=== PATIENT | male | born 1945 | race Caucasian/White ===

== ENCOUNTER 2020-12-22 11:39 | Inpatient (IN) | payer MEDICARE, BC ==
[~2020-12-22] VITALS: Ht 172.7 cm; Wt 90.7 kg
[2020-12-22 12:26] LABS: HEMATOCRIT 41.8 % (36.7-47.1); MEAN CORPUSCULAR HEMOGLOBIN 31.9 uug (23.8-33.4); MEAN CORPUSCULAR VOLUME 95.3 fL (73.0-96.2); PLATELET COUNT (AUTO) 202 K/uL (152-348)
[2020-12-22] MEDS ORDERED: EZET10TA15 PO (12:35)
[2020-12-22] MEDS ORDERED: IBUP-2413 PO (12:35)
[2020-12-22] MEDS ORDERED: ASCO500P18 PO (12:35)
[2020-12-22] MEDS ORDERED: LOSA25TA27 PO (12:35)
[2020-12-22] MEDS ORDERED: MECL-159 PO (12:35)
[2020-12-22] MEDS ORDERED: NIFE30TA2 PO (12:35)
[2020-12-22] MEDS ORDERED: ATOR40TA PO (12:35)
[2020-12-22] MEDS ORDERED: GLUC1CAP29 PO (12:35)
[2020-12-22] MEDS ORDERED: CYAN-51 PO (12:35)
[2020-12-22] MEDS ORDERED: VITAMIN D3 (12:35)
[2020-12-22] MEDS ORDERED: ZINC50TA69 PO (12:35)
[2020-12-22] MEDS ORDERED: [UNRECOGNIZED DRUG - OTHER] PO (12:35)
[2020-12-22] MEDS ORDERED: BUPR-319 PO (12:35)
[2020-12-22] MEDS ORDERED: ASPI81TA31 PO (12:35)
[2020-12-22] MEDS ORDERED: NYQUIL PO (12:35)
[2020-12-22] MEDS ORDERED: SERT50TA PO (12:36)
[2020-12-22] MEDS ORDERED: TERA2CAP4 PO (12:36)
[2020-12-22] MEDS ORDERED: LEVE500T20 PO (12:36)
[2020-12-22 12:37] LABS: CARBON DIOXIDE 19 mmol/L (21-32); CHLORIDE 102 mmol/L (98-107); CREATININE 2.5 mg/dL (0.6-1.3); GLUCOSE 91 mg/dL (74-106); POTASSIUM 4.7 mmol/L (3.5-5.1); UREA NITROGEN, BLOOD 38 mg/dL (7-18)
[2020-12-22 12:42] LABS: ALANINE AMINOTRANSFERASE 23 U/L (16-63); ALKALINE PHOSPHATASE 61 U/L (50-136); ASPARTATE AMINOTRANSFERASE 20 U/L (15-37); BILIRUBIN,DIRECT 0.1 mg/dL (0.0-0.2); BILIRUBIN,TOTAL 0.3 mg/dL (0.2-1.0); TOTAL PROTEIN, SERUM 7.4 g/dL (6.4-8.2)
[2020-12-22] MEDS ORDERED: IV NS 1000 ML 1,000 ML IV ONE (13:00)
[2020-12-22] MEDS ORDERED: IV NORMAL SALINE 1000 ML BAG IV ONE (13:00)
[2020-12-22 13:16] LABS: MAGNESIUM 2.4 mg/dL (1.8-2.4); PHOSPHOROUS 5.1 mg/dL (2.5-4.9)
[2020-12-22 13:29] LABS: ABG BASE EXCESS -10.1 mmol/L; ABG HCO3 14.2 mmol/L; ABG PCO2 27.9 mmHg (35.0-45.0); ABG PH 7.326 (7.350-7.450); ABG PO2 80.8 mmHg (75.0-100.0); ABG SITE LEFT BRACHIAL; ABG TOTAL HEMOGLOBIN 14.4 G/dL (13.5-18.0); COHb 1.4 % (0.5-1.5); MetHb 0.2 % (0.0-1.5); O2Hb 93.7 % (94.0-97.0); VENT MODE ROOM AIR
[2020-12-22] MEDS ORDERED: SODIUM BICARBONATE 8.4% 50 MEQ/50 ML VIAL IV ONE (13:45)
[2020-12-22 14:16] LABS: *BILIRUBIN,URIN NEGATIVE (NEGATIVE); *CLARITY,URINE CLEAR (CLEAR); *COLOR,URINE YELLOW (YELLOW); *KETONES,URINE NEGATIVE (NEGATIVE); *UROBILINOGEN,URINE 0.2 E.U./dl (NORMAL); LEUKOCYTE ESTERASE ,URINE NEGATIVE (NEGATIVE); NITRITE, URINE NEGATIVE (NEGATIVE); UGLUCOSE NEGATIVE (NEGATIVE)
[2020-12-22 14:17] LABS: *BLOOD, URINE TRACE (NEGATIVE)
[2020-12-22 14:23] LABS: BACTERIA,URINE FEW /HPF (NONE SEEN); MUCUS,URINE FEW /LPF (0-FEW); RBC,URINE 0-3 /HPF (0-3); SQUAMOUS EPITHELIAL CELL,UR FEW /HPF (NONE SEEN); URINE AMORPHOUS URATE FEW /HPF
[2020-12-22] MEDS ORDERED: SODIUM BICARBONATE 8.4% 50 MEQ/50 ML DISP.SYRIN IV ONE (14:23)
[2020-12-22] MEDS ORDERED: CEFTRIAXONE 2 G in IV DEXTROSE 5% 100 ML IV ONE (15:00)
[2020-12-22] MEDS ORDERED: MAGNESIUM HYDROXIDE 30 ML LIQUID UDC PO PRN (16:15)
[2020-12-22] MEDS ORDERED: ACETAMINOPHEN 325 MG TABLET PO PRN (16:15)
[2020-12-22] MEDS ORDERED: Z GUARD REMEDY PASTE 57 GM TUBE TOP PRN (16:15)
[2020-12-22] MEDS ORDERED: ONDANSETRON 4 MG/2 ML VIAL IV PRN (16:15)
--- NOTE | 2020-12-22 16:18 | NUR ---
Patient is not medically cleared for [facility] admission per Dr Reyes. Patient needs medical-surgical bed & nurse with 1:[address] Reyes. Patient was updated.
[2020-12-22] MEDS ORDERED: MECLIZINE HCL 25 MG TABLET PO PRN (16:30)
--- NOTE | 2020-12-22 18:01 | NUR ---
Patient voided 4x, with bladder scan done by RADHA Gramajo.
--- NOTE | 2020-12-22 18:45 | NUR ---
received from ER per joao awake alert and oriented, sitter with pt, on 5150 hold til 12/21 0431, with saline lock on right forearm, dinner tray served- will endorse to next shift
--- NOTE | 2020-12-22 20:00 | NUR ---
RECEIVED PATIENT AWAKE IN BED. A/O X4. SITTER AT BEDSIDE FOR SAFETY. VSS. WILL CONTINUE TO MONITOR AND CLOSELY ASSESS.
[2020-12-22 20:02] VITALS: BP 151/85
[2020-12-22] MEDS: levETIRAcetam 500 MG TABLET PO SCH (20:11)
[2020-12-22] MEDS: TERAZOSIN 1 MG CAPSULE PO SCH (20:11)
[2020-12-22] MEDS: NIFEdipine XL 30 MG TABSR PO SCH (20:11)
[2020-12-22] MEDS: ATORVASTATIN 40 MG TABLET PO SCH (20:11)
[2020-12-22] MEDS: IV NS 1000 ML 1,000 ML IV PRN (21:09)
[2020-12-22] MEDS ORDERED: MELATONIN 3 MG TABLET PO ONE ×2 (21:45→22:45)
[2020-12-23 00:33] VITALS: BP 136/81
[2020-12-23 04:35] VITALS: BP 147/88
[2020-12-23] MEDS: IV NS 1000 ML 1,000 ML IV PRN ×2 (06:27→16:43)
[2020-12-23 06:37] LABS: HEMATOCRIT 36.7 % (36.7-47.1); MEAN CORPUSCULAR HEMOGLOBIN 31.8 uug (23.8-33.4); MEAN CORPUSCULAR VOLUME 95.4 fL (73.0-96.2); PLATELET COUNT (AUTO) 178 K/uL (152-348)
[2020-12-23 07:08] LABS: CARBON DIOXIDE 23 mmol/L (21-32); CHLORIDE 109 mmol/L (98-107); CHOLESTEROL 87 mg/dL (<200); CREATININE 1.4 mg/dL (0.6-1.3); GLUCOSE 87 mg/dL (74-106); HDL CHOLESTEROL 35 mg/dL (40-60); MAGNESIUM 2.1 mg/dL (1.8-2.4); PHOSPHOROUS 4.1 mg/dL (2.5-4.9); POTASSIUM 4.5 mmol/L (3.5-5.1); TRIGLYCERIDES 64 MG/DL (30-150); UREA NITROGEN, BLOOD 30 mg/dL (7-18)
--- NOTE | 2020-12-23 08:00 | NUR ---
awake alert and oriented, denies of pain, no distress noted, still looks depressed, 1:1 sitter in the room, safety measures maintained
[2020-12-23] MEDS: ASCORBIC ACID 500 MG TABLET PO SCH (08:31)
[2020-12-23] MEDS: CYANOCOBALAMIN 1,000 MCG TABLET PO SCH (08:31)
[2020-12-23] MEDS: EZETIMIBE 10 MG TABLET PO SCH (08:32)
[2020-12-23] MEDS: ZINC SULFATE 220 MG CAPSULE PO SCH (08:34)
[2020-12-23] MEDS ORDERED: GLUC SU PO SCH (09:00)
[2020-12-23] MEDS ORDERED: [UNRECOGNIZED DRUG - OTHER] PO SCH (09:00)
[2020-12-23] MEDS ORDERED: buPROPion XL 150 MG TAB.SR.24H PO SCH (09:00)
[2020-12-23] MEDS ORDERED: SERTRALINE HCL 50 MG TABLET PO SCH (09:00)
[2020-12-23] MEDS ORDERED: CHONDROITIN SULFATE A PO SCH (09:00)
[2020-12-23 12:00] VITALS: BP 142/84
--- NOTE | 2020-12-23 12:00 | NUR ---
Dr Best here and saw pt- see notes
[2020-12-23] MEDS ORDERED: LORAZEPAM 1 MG TABLET PO PRN (12:30)
--- NOTE | 2020-12-23 13:00 | NUR ---
pt on 14 day hold
--- NOTE | 2020-12-23 14:00 | NUR ---
a mom fo a friend will be here to pick her up, family friend called and will be here in half hour, discharged instructions given, verbalized understanding, all belongings ready, sitting on chair without any dyspnea, tele remains SR 80's, call right on hand Addendum: 12/23/20 at 1533 by TANIKA WEBER RN wrong charting
--- NOTE | 2020-12-23 14:55 | NUR ---
transportation here, escorted to car per w/c in stable condition, all belongings with her Addendum: 12/23/20 at 1533 by TANIKA WEBER RN wrong charting
--- NOTE | 2020-12-23 15:00 | NUR ---
ambulated in the hallway with assist with sitter- tolerated well
[2020-12-23 16:08] VITALS: BP 147/92
--- NOTE | 2020-12-23 18:11 | NUR ---
no suicidal ideation noted at this time, no alcohol withdrawal noted, up to bathroom as needed with sitter's assistance, eating well and compliant with care and meds, all needs attended and met, safety measures maintained
--- NOTE | 2020-12-23 19:00 | NUR ---
pt is in bed awake sitter is at bed side no ss of depression noted vs are stable we will continue to monitors
[2020-12-23] MEDS: ATORVASTATIN 40 MG TABLET PO SCH (20:11)
[2020-12-23] MEDS: levETIRAcetam 500 MG TABLET PO SCH (20:11)
[2020-12-23] MEDS: NIFEdipine XL 30 MG TABSR PO SCH (20:11)
[2020-12-23] MEDS: TERAZOSIN 1 MG CAPSULE PO SCH (20:12)
[2020-12-23 20:37] VITALS: BP 150/80
[2020-12-23] MEDS ORDERED: MELATONIN 3 MG TABLET PO ONE (21:00)
[2020-12-24] MEDS: IV NS 1000 ML 1,000 ML IV PRN (02:06)
[2020-12-24 05:06] VITALS: BP 159/92
[2020-12-24 06:39] LABS: HEMATOCRIT 35.9 % (36.7-47.1); MEAN CORPUSCULAR HEMOGLOBIN 31.9 uug (23.8-33.4); MEAN CORPUSCULAR VOLUME 94.3 fL (73.0-96.2); PLATELET COUNT (AUTO) 174 K/uL (152-348)
[2020-12-24 07:05] LABS: CREATININE 0.9 mg/dL (0.6-1.3)
[2020-12-24] MEDS: SERTRALINE HCL 50 MG TABLET PO SCH ×2 (08:31→16:22)
[2020-12-24] MEDS: ASCORBIC ACID 500 MG TABLET PO SCH (08:31)
[2020-12-24] MEDS: CYANOCOBALAMIN 1,000 MCG TABLET PO SCH (08:31)
[2020-12-24] MEDS: EZETIMIBE 10 MG TABLET PO SCH (08:31)
[2020-12-24] MEDS: ZINC SULFATE 220 MG CAPSULE PO SCH (08:31)
[2020-12-24] MEDS ORDERED: buPROPion XL 150 MG TAB.SR.24H PO SCH (09:00)
[2020-12-24 13:00] VITALS: BP 154/91
[2020-12-24 16:05] VITALS: BP 159/89
--- NOTE | 2020-12-24 19:00 | NUR ---
RECD PT IN BED, NO ACUTE DISTRESS NOTED,ALERT AND ORIENTED X4,NO COMPLAINTS OF VERTIGO NOTED.
[2020-12-24 20:40] VITALS: BP 154/90
[2020-12-24] MEDS: levETIRAcetam 500 MG TABLET PO SCH (20:53)
[2020-12-24] MEDS: ATORVASTATIN 40 MG TABLET PO SCH (20:53)
[2020-12-24] MEDS: TERAZOSIN 1 MG CAPSULE PO SCH (20:53)
[2020-12-24] MEDS: NIFEdipine XL 30 MG TABSR PO SCH (20:54)
--- NOTE | 2020-12-24 20:55 | NUR ---
HEPLOCK ON RIGHT FOREARM GOT INFILTRATED, CLEANED AND KEPT DRY,PT APPEARED ANXIOUS AND RESTLESS, ATIVAN 1 MG PO GIVEN .SLEPT AT SHORT INTERVALS.
[2020-12-25 04:36] VITALS: BP 130/87
--- NOTE | 2020-12-25 04:57 | NUR ---
NO SUICIDAL IDEATION NOTED, 1;1 SITTER AT BEDSIDE.
[2020-12-25 06:34] LABS: HEMATOCRIT 37.3 % (36.7-47.1); MEAN CORPUSCULAR VOLUME 94.7 fL (73.0-96.2); PLATELET COUNT (AUTO) 194 K/uL (152-348)
[2020-12-25 06:40] LABS: CREATININE 0.9 mg/dL (0.6-1.3); MAGNESIUM 1.7 mg/dL (1.8-2.4); PHOSPHOROUS 4.7 mg/dL (2.5-4.9); POTASSIUM 4.3 mmol/L (3.5-5.1)
--- NOTE | 2020-12-25 07:49 | NUR ---
Awake, alert, oriented x 4. Denies pain. Denies suicidal ideation. 1:1 sitter at bedside.
[2020-12-25] MEDS: SERTRALINE HCL 50 MG TABLET PO SCH (08:57)
[2020-12-25] MEDS: EZETIMIBE 10 MG TABLET PO SCH (08:57)
[2020-12-25] MEDS: ASCORBIC ACID 500 MG TABLET PO SCH (08:57)
[2020-12-25] MEDS: CYANOCOBALAMIN 1,000 MCG TABLET PO SCH (08:57)
[2020-12-25] MEDS: ZINC SULFATE 220 MG CAPSULE PO SCH (08:57)
[2020-12-25] MEDS ORDERED: LISINOPRIL 5 MG TABLET PO SCH (09:00)
[2020-12-25] MEDS ORDERED: MAGNESIUM SULFATE/D5W 100 ML IV SCH (10:15)
[2020-12-25] MEDS ORDERED: MAGNESIUM OXIDE 400 MG TABLET PO ONE (11:00)
[2020-12-25 11:07] VITALS: BP 137/87
[2020-12-25] MEDS ORDERED: SERTRALINE HCL 100 MG TABLET PO SCH (13:00)
[2020-12-25] MEDS ORDERED: SERT100T12 PO (14:42)
[2020-12-25] MEDS ORDERED: SERT50TA12 PO (14:42)
[2020-12-25] MEDS ORDERED: LISI-782 PO (14:42)
[2020-12-25] MEDS ORDERED: ACID1TAB4 GT (14:42)
[2020-12-25] MEDS ORDERED: ACIDOPHILUS/BULGARICUS CHEW TAB GT SCH (14:45)
--- NOTE | 2020-12-25 14:45 | NUR ---
With loose BM. Jolynn SHELL FREEZING MACHINE OPERATOR informed with order for Floranex, given
[2020-12-25] MEDS ORDERED: ACIDOPHILUS/BULGARICUS CHEW TAB PO SCH (15:00)
--- NOTE | 2020-12-25 15:52 | NUR ---
With discharge order to [facility]. Report given to August. Endorsed for further care
[2020-12-26] MEDS ORDERED: SERTRALINE HCL 50 MG TABLET PO SCH (09:00)
== END 2020-12-25 16:00 | DRG 917 ==
LOC: ER 11:39 → MEDSURG3 17:59 → TELE3 19:19 → MEDSURG3 12-24 10:17
PROVIDERS: ADMIT Family Medicine; ATTEND Nurse Practitioner Acute Care
DX: T39.392A Poisoning by other nonsteroidal anti-inflammatory drugs [NSAID], intentional self-harm, initial encounter (principal); N17.0 Acute kidney failure with tubular necrosis; F32.2 Major depressive disorder, single episode, severe without psychotic features; N39.0 Urinary tract infection, site not specified; E87.2 Acidosis; Y92.009 Unspecified place in unspecified non-institutional (private) residence as the place of occurrence of the external cause; E86.9 Volume depletion, unspecified; G40.909 Epilepsy, unspecified, not intractable, without status epilepticus; F60.9 Personality disorder, unspecified; F41.9 Anxiety disorder, unspecified; Z91.5 Personal history of self-harm; Z79.82 Long term (current) use of aspirin; Z86.73 Personal history of transient ischemic attack (TIA), and cerebral infarction without residual deficits; Z87.891 Personal history of nicotine dependence; E78.5 Hyperlipidemia, unspecified; N40.1 Benign prostatic hyperplasia with lower urinary tract symptoms; N18.9 Chronic kidney disease, unspecified; I12.9 Hypertensive chronic kidney disease with stage 1 through stage 4 chronic kidney disease, or unspecified chronic kidney disease; B96.89 Other specified bacterial agents as the cause of diseases classified elsewhere; Z72.89 Other problems related to lifestyle
CPT/HCPCS: 36415; 36600; 70030-TC; 71045; 83605; 83735; 83930; 83935; 84100; 85025; 87086; 93005; A4663; G0378; J0696; J3490; J7030; J7060

== ENCOUNTER 2020-12-25 16:24 | Inpatient (IN) | payer MEDICARE, BC ==
[~2020-12-25] VITALS: Ht 167.6 cm; Wt 83.5 kg
[~2020-12-25 16:24] MED LIST: ACID1TAB4 GT; ASCO500P18 PO; ASPI81TA31 PO; ATOR40TA PO; BUPR-319 PO; CYAN-51 PO; EZET10TA15 PO; GLUC1CAP29 PO; IBUP-2413 PO; LEVE500T20 PO; LISI-782 PO; LOSA25TA27 PO; MECL-159 PO; NIFE30TA2 PO; NYQUIL PO; SERT100T12 PO; SERT50TA PO; SERT50TA12 PO; TERA2CAP4 PO; VITAMIN D3; ZINC50TA69 PO; [UNRECOGNIZED DRUG - OTHER] PO
[2020-12-25] MEDS ORDERED: LORAZEPAM 0.5 MG TABLET PO PRN (17:00)
[2020-12-25] MEDS ORDERED: BLOOD SUGAR DIAGNOSTIC 1 EACH STRIP VI ONE (17:00)
[2020-12-25] MEDS ORDERED: MAG HYDROX/AL HYDROX/SIMETH 30 ML LIQUID UDC PO PRN (17:00)
[2020-12-25] MEDS ORDERED: ACETAMINOPHEN 325 MG TABLET PO PRN (17:00)
[2020-12-25] MEDS ORDERED: TEMAZEPAM 7.5 MG CAPSULE PO PRN (17:00)
[2020-12-25] MEDS ORDERED: MAGNESIUM HYDROXIDE 30 ML LIQUID UDC PO PRN (17:00)
--- NOTE | 2020-12-25 17:08 | NUR ---
GPS: Nursing Notes: Admission Notes: Patient is admitted to [facility] on 5250 DTS due to patient with severe depression, states post Ibuprofen overdose, danger to self, upon face to face assessment, patient is A/Ox4, cooperative with staff, depressed mood and anxious affect at times, denies SI, stated "It was a stupid thing to do..", low energy level, oriented to the unit, admitting package given to patient, Dr. Best and Jolynn Blas, TREE SURGEON HELPER notified of admission, continue to monitor for safety, continue with treatment plan.
[2020-12-25 18:19] VITALS: BP 134/90
[2020-12-25] MEDS ORDERED: MECLIZINE HCL 25 MG TABLET PO PRN (19:30)
[2020-12-25 20:36] VITALS: BP 149/90
[2020-12-25] MEDS ORDERED: IBUPROFEN 200 MG TABLET PO PRN (21:00)
[2020-12-25] MEDS: levETIRAcetam 500 MG TABLET PO SCH (21:03)
[2020-12-25] MEDS: NIFEdipine XL 30 MG TABSR PO SCH (21:03)
[2020-12-25] MEDS ORDERED: ACIDOPHILUS/BULGARICUS CHEW TAB GT SCH (22:00)
[2020-12-26] MEDS: ACIDOPHILUS/BULGARICUS CHEW TAB PO SCH ×3 (06:44→22:28)
[2020-12-26 07:30] VITALS: BP 129/88
[2020-12-26] MEDS ORDERED: CHONDROITIN SULFATE A PO SCH (09:00)
[2020-12-26] MEDS ORDERED: Medication Not On Formulary EA (Zinc 50 MG) PO SCH (09:00)
[2020-12-26] MEDS ORDERED: [UNRECOGNIZED DRUG - OTHER] PO SCH (09:00)
[2020-12-26] MEDS ORDERED: GLUC SU PO SCH (09:00)
[2020-12-26] MEDS ORDERED: Medication Not On Formulary EA (Ascorbic Acid (Vitamin C) 1,000 MG) PO SCH (09:00)
--- NOTE | 2020-12-26 09:10 | NUR ---
KIMMIE Initial Discharge Plan: Patient resides at home [address] [place] [address] with his Pam Zelaya ([phone]). Patient would like a SNF upon discharge. KIMMIE will continue to work with patient, family, and MD to ensure a safe and proper discharge plan.
--- NOTE | 2020-12-26 09:13 | NUR ---
Brief Substance Abuse Intervention: Patient was provided with a brief substance abuse intervention for medication overdose and alcohol use and referred to the following substance abuse programs: [facility] ([phone]); [facility] [address] [place] [address] ([phone]); [address] [address] ([phone]); [facility] ([phone]); [facility] ([phone]); [facility] ([phone]); [facility] ([phone]).
--- NOTE | 2020-12-26 09:13 | NUR ---
KIMMIE Family Contact: SW contacted patient's Pam Zelaya ([phone]) to discuss treatment and discharge plan. Left a message.
--- NOTE | 2020-12-26 09:13 | NUR ---
Firearms Report: Test And Balance Engineer completed and submitted a [employer] firearms report for 5150 danger to self certifications. A copy of report has been placed in patient chart.
--- NOTE | 2020-12-26 09:22 | NUR ---
KIMMIE Family Contact: SW contacted patient's Pam Zelaya ([phone]) and discussed treatment and discharge plan.
[2020-12-26] MEDS: EZETIMIBE 10 MG TABLET PO SCH (10:27)
[2020-12-26] MEDS: CYANOCOBALAMIN 1,000 MCG TABLET PO SCH (10:27)
[2020-12-26] MEDS: LOSARTAN POTASSIUM 25 MG TABLET PO SCH (10:27)
[2020-12-26] MEDS: ASCORBIC ACID 500 MG TABLET PO SCH (10:27)
[2020-12-26] MEDS: ZINC SULFATE 220 MG CAPSULE PO SCH (10:27)
[2020-12-26] MEDS: LISINOPRIL 5 MG TABLET PO SCH (10:28)
[2020-12-26] MEDS: SERTRALINE HCL 50 MG TABLET PO SCH (10:30)
[2020-12-26] MEDS: SERTRALINE HCL 100 MG TABLET PO SCH (13:33)
[2020-12-26 16:40] VITALS: BP 134/88
[2020-12-26] MEDS: HYDROCORTISONE 0.5% CREAM 28.35 GM TUBE TOP SCH ×2 (18:04→22:29)
[2020-12-26] MEDS: ATORVASTATIN 40 MG TABLET PO SCH (18:04)
[2020-12-26 20:08] VITALS: BP 129/81
[2020-12-26] MEDS: levETIRAcetam 500 MG TABLET PO SCH (22:28)
[2020-12-26] MEDS: NIFEdipine XL 30 MG TABSR PO SCH (22:30)
[2020-12-27 07:30] VITALS: BP 136/85
[2020-12-27] MEDS: ACIDOPHILUS/BULGARICUS CHEW TAB PO SCH ×3 (08:56→22:01)
[2020-12-27] MEDS: ZINC SULFATE 220 MG CAPSULE PO SCH (08:56)
[2020-12-27] MEDS: SERTRALINE HCL 50 MG TABLET PO SCH (08:56)
[2020-12-27] MEDS: EZETIMIBE 10 MG TABLET PO SCH (08:56)
[2020-12-27] MEDS: CYANOCOBALAMIN 1,000 MCG TABLET PO SCH (08:56)
[2020-12-27] MEDS: ASCORBIC ACID 500 MG TABLET PO SCH (08:57)
[2020-12-27] MEDS: LOSARTAN POTASSIUM 25 MG TABLET PO SCH (08:57)
[2020-12-27] MEDS: LISINOPRIL 5 MG TABLET PO SCH (08:57)
[2020-12-27] MEDS: HYDROCORTISONE 0.5% CREAM 28.35 GM TUBE TOP SCH ×2 (09:05→20:37)
--- NOTE | 2020-12-27 11:15 | NUR ---
KIMMIE SNF Referral: SW faxed patient's referral packet to the following SNFs for review and placement: [facility] attention to [facility] ( ) [facility] attention to [facility] ( ) [facility] attention to [facility] ( )
[2020-12-27] MEDS: SERTRALINE HCL 100 MG TABLET PO SCH (12:53)
--- NOTE | 2020-12-27 13:20 | NUR ---
KIMMIE PC Hearing: Patient had 5250 probable cause hearing today and it was upheld for danger to himself.
[2020-12-27 16:00] VITALS: BP 102/73
[2020-12-27] MEDS: ATORVASTATIN 40 MG TABLET PO SCH (17:05)
[2020-12-27] MEDS: TERAZOSIN 1 MG CAPSULE PO SCH (17:06)
[2020-12-27 20:00] VITALS: BP 111/59
[2020-12-27] MEDS: levETIRAcetam 500 MG TABLET PO SCH (20:36)
[2020-12-27] MEDS: NIFEdipine XL 30 MG TABSR PO SCH (20:37)
[2020-12-28] MEDS: ACIDOPHILUS/BULGARICUS CHEW TAB PO SCH ×3 (06:19→21:03)
--- NOTE | 2020-12-28 06:46 | NUR ---
GPS: Pt. slept 7.30 last night. Less depressed when asked. Denies SI. Re-assured prn. Will continue to monitor.
[2020-12-28 07:30] VITALS: BP 114/67
[2020-12-28] MEDS: SERTRALINE HCL 50 MG TABLET PO SCH (09:13)
[2020-12-28] MEDS: ASCORBIC ACID 500 MG TABLET PO SCH (09:13)
[2020-12-28] MEDS: EZETIMIBE 10 MG TABLET PO SCH (09:13)
[2020-12-28] MEDS: ZINC SULFATE 220 MG CAPSULE PO SCH (09:13)
[2020-12-28] MEDS: LOSARTAN POTASSIUM 25 MG TABLET PO SCH (09:13)
[2020-12-28] MEDS: CYANOCOBALAMIN 1,000 MCG TABLET PO SCH (09:14)
[2020-12-28] MEDS: HYDROCORTISONE 0.5% CREAM 28.35 GM TUBE TOP SCH ×2 (09:15→20:09)
[2020-12-28] MEDS: LISINOPRIL 5 MG TABLET PO SCH (09:15)
--- NOTE | 2020-12-28 09:43 | NUR ---
KIMMIE Family Contact: SW contacted patient's Mara Zelaya ([phone]) and discussed treatment and discharge plan. SW informed of patient being accepted to [facility] and she is agreeable.
--- NOTE | 2020-12-28 09:43 | NUR ---
SW SNF Referral: Patient is accepted at [facility] for placement.
[2020-12-28] MEDS: SERTRALINE HCL 100 MG TABLET PO SCH (12:50)
[2020-12-28 16:52] VITALS: BP 113/72
[2020-12-28] MEDS: TERAZOSIN 1 MG CAPSULE PO SCH (17:31)
[2020-12-28] MEDS: ATORVASTATIN 40 MG TABLET PO SCH (17:31)
[2020-12-28] MEDS: levETIRAcetam 500 MG TABLET PO SCH (20:08)
[2020-12-28] MEDS: NIFEdipine XL 30 MG TABSR PO SCH (20:08)
[2020-12-28 20:23] VITALS: BP 116/63
[2020-12-29] MEDS: ACIDOPHILUS/BULGARICUS CHEW TAB PO SCH ×3 (05:58→21:58)
--- NOTE | 2020-12-29 06:29 | NUR ---
GPS: Pt.slept 7.15 last night. Safe environment provided. Denies wanting to harm self. Encouraged to attend groups during the day. Will continue to monitor.
[2020-12-29 07:30] VITALS: BP 139/73
[2020-12-29] MEDS: EZETIMIBE 10 MG TABLET PO SCH (08:35)
[2020-12-29] MEDS: ZINC SULFATE 220 MG CAPSULE PO SCH (08:35)
[2020-12-29] MEDS: SERTRALINE HCL 50 MG TABLET PO SCH (08:35)
[2020-12-29] MEDS: ASCORBIC ACID 500 MG TABLET PO SCH (08:35)
[2020-12-29] MEDS: CYANOCOBALAMIN 1,000 MCG TABLET PO SCH (08:35)
[2020-12-29] MEDS: HYDROCORTISONE 0.5% CREAM 28.35 GM TUBE TOP SCH ×2 (08:36→20:08)
[2020-12-29] MEDS: LISINOPRIL 5 MG TABLET PO SCH (08:36)
[2020-12-29] MEDS: LOSARTAN POTASSIUM 25 MG TABLET PO SCH (08:36)
[2020-12-29] MEDS: SERTRALINE HCL 100 MG TABLET PO SCH (12:32)
--- NOTE | 2020-12-29 12:53 | NUR ---
Patient is alert and oriented, pleasant and cooperative upon assessment. Denies of any pain. All due meds given per MD order. All needs met in a timely manner. No s/s of distress noted.
[2020-12-29 15:02] VITALS: BP 122/78
[2020-12-29] MEDS: ATORVASTATIN 40 MG TABLET PO SCH (17:11)
[2020-12-29] MEDS: TERAZOSIN 1 MG CAPSULE PO SCH (17:13)
[2020-12-29] MEDS: NIFEdipine XL 30 MG TABSR PO SCH (20:08)
[2020-12-29] MEDS: levETIRAcetam 500 MG TABLET PO SCH (20:09)
[2020-12-29 20:17] VITALS: BP 107/64
[2020-12-30] MEDS: ACIDOPHILUS/BULGARICUS CHEW TAB PO SCH ×3 (05:46→21:15)
[2020-12-30] MEDS: CYANOCOBALAMIN 1,000 MCG TABLET PO SCH (08:24)
[2020-12-30] MEDS: LISINOPRIL 5 MG TABLET PO SCH (08:24)
[2020-12-30] MEDS: EZETIMIBE 10 MG TABLET PO SCH (08:24)
[2020-12-30] MEDS: ZINC SULFATE 220 MG CAPSULE PO SCH (08:24)
[2020-12-30] MEDS: SERTRALINE HCL 50 MG TABLET PO SCH (08:24)
[2020-12-30] MEDS: ASCORBIC ACID 500 MG TABLET PO SCH (08:25)
[2020-12-30] MEDS: LOSARTAN POTASSIUM 25 MG TABLET PO SCH (08:25)
[2020-12-30] MEDS: HYDROCORTISONE 0.5% CREAM 28.35 GM TUBE TOP SCH ×2 (08:26→20:53)
[2020-12-30 09:13] VITALS: BP 136/77
[2020-12-30] MEDS: SERTRALINE HCL 100 MG TABLET PO SCH (12:32)
[2020-12-30 16:38] VITALS: BP 145/94
[2020-12-30] MEDS: TERAZOSIN 1 MG CAPSULE PO SCH (17:08)
[2020-12-30] MEDS: ATORVASTATIN 40 MG TABLET PO SCH (17:08)
[2020-12-30 20:00] VITALS: BP 111/72
[2020-12-30] MEDS: levETIRAcetam 500 MG TABLET PO SCH (20:52)
[2020-12-30] MEDS: NIFEdipine XL 30 MG TABSR PO SCH (20:53)
[2020-12-31] MEDS: ACIDOPHILUS/BULGARICUS CHEW TAB PO SCH ×3 (05:50→23:00)
[2020-12-31 07:50] VITALS: BP 131/77
[2020-12-31] MEDS: CYANOCOBALAMIN 1,000 MCG TABLET PO SCH (08:27)
[2020-12-31] MEDS: ASCORBIC ACID 500 MG TABLET PO SCH (08:27)
[2020-12-31] MEDS: ZINC SULFATE 220 MG CAPSULE PO SCH (08:27)
[2020-12-31] MEDS: EZETIMIBE 10 MG TABLET PO SCH (08:27)
[2020-12-31] MEDS: SERTRALINE HCL 50 MG TABLET PO SCH (08:27)
[2020-12-31] MEDS: LISINOPRIL 5 MG TABLET PO SCH (08:28)
[2020-12-31] MEDS: LOSARTAN POTASSIUM 25 MG TABLET PO SCH (08:28)
[2020-12-31] MEDS: HYDROCORTISONE 0.5% CREAM 28.35 GM TUBE TOP SCH ×2 (08:29→20:23)
[2020-12-31] MEDS: SERTRALINE HCL 100 MG TABLET PO SCH (12:20)
[2020-12-31] MEDS: ATORVASTATIN 40 MG TABLET PO SCH (16:48)
[2020-12-31] MEDS: TERAZOSIN 1 MG CAPSULE PO SCH (16:49)
[2020-12-31 16:50] VITALS: BP 134/73
[2020-12-31 20:18] VITALS: BP 131/82
[2020-12-31] MEDS: NIFEdipine XL 30 MG TABSR PO SCH (20:22)
[2020-12-31] MEDS: levETIRAcetam 500 MG TABLET PO SCH (20:22)
[2021-01-01] MEDS: ACIDOPHILUS/BULGARICUS CHEW TAB PO SCH ×3 (06:59→21:10)
[2021-01-01 08:00] VITALS: BP 129/74
[2021-01-01] MEDS: CYANOCOBALAMIN 1,000 MCG TABLET PO SCH (08:20)
[2021-01-01] MEDS: EZETIMIBE 10 MG TABLET PO SCH (08:20)
[2021-01-01] MEDS: LISINOPRIL 5 MG TABLET PO SCH (08:20)
[2021-01-01] MEDS: SERTRALINE HCL 50 MG TABLET PO SCH (08:21)
[2021-01-01] MEDS: ASCORBIC ACID 500 MG TABLET PO SCH (08:21)
[2021-01-01] MEDS: LOSARTAN POTASSIUM 25 MG TABLET PO SCH (08:21)
[2021-01-01] MEDS: ZINC SULFATE 220 MG CAPSULE PO SCH (08:21)
[2021-01-01] MEDS: HYDROCORTISONE 0.5% CREAM 28.35 GM TUBE TOP SCH ×2 (08:33→21:11)
--- NOTE | 2021-01-01 10:07 | NUR ---
SW Family Contact: This SW spoke with patient's Mara ([phone]) and stated pt will be discharged tomorrow 01/02 and will be going to [facility]. She was agreeable with this plan.
[2021-01-01] MEDS: SERTRALINE HCL 100 MG TABLET PO SCH (12:44)
--- NOTE | 2021-01-01 13:17 | NUR ---
GPS: pt alert and verbally responsive. no aggressive behavior seen at this time. cooperative with care. pt knows that he will be discharged tomorrow. covid test done and the result was negative. pt goes to dining room for breakfast and lunch and participates with group activities.
[2021-01-01 16:00] VITALS: BP 125/78
[2021-01-01] MEDS: ATORVASTATIN 40 MG TABLET PO SCH (17:18)
[2021-01-01] MEDS: TERAZOSIN 1 MG CAPSULE PO SCH (17:19)
[2021-01-01] MEDS: NIFEdipine XL 30 MG TABSR PO SCH (21:00)
[2021-01-01] MEDS: levETIRAcetam 500 MG TABLET PO SCH (21:11)
[2021-01-02] MEDS: ACIDOPHILUS/BULGARICUS CHEW TAB PO SCH ×2 (06:38→13:15)
[2021-01-02 07:30] VITALS: BP 139/67
--- NOTE | 2021-01-02 08:26 | NUR ---
SW Discharge Note: Patient will be discharged to [facility] [address] [place] [address] ([phone]) via ambulance at 1PM. Spoke with Barb, Admin Coordinator at the facility who states they are ready to accept the patient today. Patients Mara ([phone]) is aware and agreeable with discharge plan. Patient is aware and agreeable with discharge plans. Patient is alert and oriented x3, is unable to plan for self-care, however, is willing to accept care at [facility]. Patient denies any suicidal or homicidal ideation. Patient will follow-up at the facility with Dr. Best (Psychiatrist) and Dr. Clancy (Director Of Reservations). Patient was provided for resources to [facility] ([phone]), [facility] ([phone]), and [facility] ([phone]) for using alcohol. Patient presented with euthymic mood and congruent affect. Patient presents with euthymic mood and congruent affect.
[2021-01-02] MEDS: EZETIMIBE 10 MG TABLET PO SCH (09:39)
[2021-01-02] MEDS: LOSARTAN POTASSIUM 25 MG TABLET PO SCH (09:40)
[2021-01-02] MEDS: ASCORBIC ACID 500 MG TABLET PO SCH (09:40)
[2021-01-02] MEDS: SERTRALINE HCL 50 MG TABLET PO SCH (09:40)
[2021-01-02] MEDS: CYANOCOBALAMIN 1,000 MCG TABLET PO SCH (09:40)
[2021-01-02 09:42] VITALS: BP 139/67
[2021-01-02] MEDS: HYDROCORTISONE 0.5% CREAM 28.35 GM TUBE TOP SCH (09:42)
[2021-01-02] MEDS: LISINOPRIL 5 MG TABLET PO SCH (09:42)
[2021-01-02] MEDS: ZINC SULFATE 220 MG CAPSULE PO SCH (09:44)
[2021-01-02] MEDS: SERTRALINE HCL 100 MG TABLET PO SCH (13:14)
--- NOTE | 2021-01-02 15:40 | NUR ---
Patient is being discharged to [facility] via ambulance ([facility]). Pt is aware and willing to go. VS are stable. Pt is calm, denying s.i. contracts for safety. Discharge teaching provided, pt verbalize understanding. Pt was able to sign pater work. Report was called and given to RADHA Rangel.
== END 2021-01-02 15:45 | DRG 885 ==
LOC: GPS 16:24
PROVIDERS: ADMIT Psychiatry & Neurology Psychosomatic Medicine; ATTEND Nurse Practitioner Acute Care
DX: F33.2 Major depressive disorder, recurrent severe without psychotic features (principal); R45.851 Suicidal ideations; E78.5 Hyperlipidemia, unspecified; G40.909 Epilepsy, unspecified, not intractable, without status epilepticus; F41.9 Anxiety disorder, unspecified; N40.0 Benign prostatic hyperplasia without lower urinary tract symptoms; I10 Essential (primary) hypertension; Z86.73 Personal history of transient ischemic attack (TIA), and cerebral infarction without residual deficits; Z91.5 Personal history of self-harm; Z87.440 Personal history of urinary (tract) infections; Z20.822 Contact with and (suspected) exposure to COVID-19; R42 Dizziness and giddiness; Z72.89 Other problems related to lifestyle; F17.200 Nicotine dependence, unspecified, uncomplicated
CPT/HCPCS: J8597